=== PATIENT | female | born 1950 | race Caucasian/White ===

== ENCOUNTER 2017-04-02 14:31 | Outpatient (CLI) | payer MEDICARE, OTHER ==
[~2017-04-02] VITALS: Ht 177.8 cm; Wt 101.4 kg
[~2017-04-02 14:31] MED LIST: ALLO300T2 PO; ASPI81TA3 PO; DICL100G37 TOP; GEMF600T PO; HYDR-762 PO; MESA1.2T PO; METO50TA16 PO; ZOLP10TA PO
[2017-04-02 14:47] VITALS: Ht 177.8 cm; Wt 101.4 kg
[2017-04-02 14:48] VITALS: BP 133/63; PULSE 90; RESP 16
[2017-04-02] MEDS ORDERED: FEBU80TA PO (14:53)
--- NOTE | 2017-04-02 19:58 | CONS ---
Date/Time of Note Date/Time of Note DATE: 04/02/17 TIME: 19:54 Assessment/Plan Assessment/Plan Additional Assessment/Plan [facility] INITIAL OUTPATIENT CONSULTATION NOTE DATE OF CONSULTATION: 04/02/2017 PLACE OF SERVICE: [facility] ASSESSMENT AND PLAN: A very-pleasant 66-year-old gentleman well-known to me from operating on him in 2014 for abdominal pain which per the report resolved after his laparoscopic segment 5 cyst unroofing as well as cholecystectomy. His most recent bout of abdominal pain which was evaluated at [facility] appears to be likely related to a viral gastroenteritis issue and less likely due to his segment 5 cyst which has expectedly reformed, although smaller than last time. The mesentery right us that is apparent on the CT scan supports the viral enteritis diagnosis as is the presence of diarrhea. Patient currently does not demonstrate a need for acute surgical intervention and for this reason I recommended that the patient and family wait and see if the patient's symptoms would resolve on its own without intervention. If the patient's continue, then it would be appropriate to resume workup with likely percutaneous drainage of the cyst again to see if there is relief of symptoms prior to further surgical intervention. I explained this in detail with the patient and his daughter and answered all their questions to the best of my ability. The patient and family appeared to understand and agree with the plans. With above assessment, I've recommended the followin. Symptomatic follow-up 2. If pain symptoms have not resolved in the next 2-3 weeks, to consider percutaneous drainage of the segment 5 cyst as a diagnostic measure 3. Follow-up with us after above Thank you very much for having me involved in the care of this very pleasant patient and wonderful family. If you have any questions, please feel free to contact me at [phone]. Nature of presenting problem: Moderate severity Please note that, given the multiple number of diagnoses or management options, the moderate amount and/or complexity of data needed to be reviewed, and moderate risk of complications and/or morbidity or mortality, this qualifies as moderate complexity type of decision-making. Disclaimer: Inadvertent spelling and grammatical errors are likely due to EHR/ dictation software use and do not reflect on the quality of delivered patient care. Also, please note that the electronic time recorded on this node does not necessarily reflect the actual time of the visit. Updated clinical summary: A very-pleasant 66-year-old gentleman well-known to me from operating on him in 2014 for abdominal pain which per the report resolved after his laparoscopic segment 5 cyst unroofing as well as cholecystectomy. Comorbidities: 1. Hypertension. 2. Gout. 3. Prior myocardial infarctions x2, one in 1999 and one in 2000 and on aspirin therapy. No stents or cardiac operations. 4. History of known hepatic cyst at least since 2010 with the above-mentioned pain complaints. 5. Possible gastroesophageal reflux disease. 6. History of ulcerative colitis. 7. Status post colonoscopy by Dr. Christianson 12/01/2013 where colitis in remission was found and an otherwise normal colonoscopy was described with biopsies that showed no evidence of acute colitis. 8. Status post percutaneous aspiration of the large segment 6 hepatic cyst with 1-year relief of abdominal pain. 9. Status post laparoscopic segment 5 cyst unroofing and cholecystectomy primarily for relief of his pain symptoms on 01/20/15 at [facility] 10. BMI 32.1 CONSULTATION REQUESTED BY: Marina Landry MD HISTORY OF PRESENT ILLNESS: The patient is a very pleasant 66-year-old gentleman well-known to me from operating on him in 2014 for abdominal pain which per the report resolved after his laparoscopic segment 5 cyst unroofing as well as cholecystectomy. 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 There was also a fat- containing hernia in the right inguinal region and presence of a 5 cm cyst in segment 5 of the liver along with evidence of prior cholecystectomy. Patient also reported having on and off diarrhea without any blood in the stool. No shortness of breath or chest pain. Pain seems to have resolved but at its worst , was 10 out of 10 in intensity. There was no alleviation or exacerbating factors. No radiation. No other major complaints. ALLERGIES: NO KNOWN DRUG ALLERGIES MEDICATIONS Documented in the electronic records and reviewed by me. Please see the electronic records for details. 1. Toprol-XL 2. [place]. 3. Mesalamine. 4. Ambien. 5. Aspirin 6. Voltaren gel 7. Uloric 8. Gemfibrozil SOCIAL HISTORY: The patient is currently retired. He lives with his family and was accompanied by 1 of his daughters in the office. He does not report any active smoking, significant drinking, or any intravenous drug use. FAMILY HISTORY: There is no significant history of major medical issues or malignant problems as noted by the patient, his daughter, or in the chart. REVIEW OF SYSTEMS: Other than the above-mentioned, there are no other pertinent positives or pertinent negatives in a complete 14-point review of systems. PHYSICAL EXAMINATION GENERAL: The patient appears to be a very pleasant gentleman of descent sitting in a chair, appearing stated age,] and otherwise in no acute distress. BMI: 32.1 VITAL SIGNS: AVSS (please also see auto important data if available as well as the electronic records) HEENT: Normocephalic and atraumatic. Extraocular muscles and hearing are grossly intact bilaterally and symmetrically. Sclerae are nonicteric. Oral cavity is clear; oral mucosa appear to be pink and moist. Dentition: fair. NECK: Supple. There is no lymphadenopathy or JVD. There is no submental, submandibular or supraclavicular lymphadenopathy. CHEST: Rises symmetrically with each breath; patient is breathing comfortably. There are no audible wheezes, rales or rhonchi on the gross exam. HEART: Pulse is regular and palpable on the right wrist. Capillary refill is normal. Carotid pulses are palpable bilaterally and symmetrically in the neck. EXTREMITIES: Lower extremities contain no pitting edema around the ankles bilaterally and symmetrically. ABDOMEN: Abdomen is soft, nontender and nondistended. No evidence of ascites, organomegaly, caput medusae, engorged subcutaneous veins, or other abnormalities. There are no peritoneal signs or guarding. SKIN: Appears to be pink and feels warm to touch. NEUROLOGIC: Awake, alert, and follows commands appropriately. LABORATORY DATA: Reviewed above IMAGING: See electronic chart and above. Please note that I've personally reviewed all pertinent available images and I agree in general with their overall reported findings. My history and physical exam findings from 2015: The patient is a very pleasant 64-year-old gentleman with past medical history significant for inflammatory bowel disease as well as gout, hypertension, and possible gastroesophageal reflux disease who has been dealing with hepatic cysts for at least the last 4-5 years. We have images going back to at least where CT scan of the abdomen and pelvis showed hepatic cysts. These have been followed in time with a number of different images, the latest of which was an MRI of the abdomen and pelvis done on 11/23/2014 that showed a large, predominantly exophytic, circumscribed lesion extending from the medial aspect of the hepatic segments 5-6 measuring 5.7 x 6.6 x 5.9 cm which demonstrate marked homogeneous T2 signal hyperintensity and low T1 signal intensity without internal septations or solid nodule components, most consistent with a simple hepatic cyst. There is a mild associated mass effect with focal intrahepatic biliary duct dilatation involving hepatic sector 6. There are also 4 additional smaller hepatic cysts present within the central right lobe of the liver measuring 1 x 1.4 cm within segment 5, one measuring 0.9 x 1.2 cm within segment 6, and one measuring 0.9 x 1.1 and another 1.0 x 1.5 cm in segment 6 as well. The gallbladder appeared to be unremarkable, and there was no extrahepatic biliary ductal dilatation. Note that I personally reviewed all these images and I agree in general with their overall reported findings. Another interesting history is the fact that the patient's abdominal pain which he describes as a crampy-type pain present mainly in the mornings when he wakes up and then going away without any pain medications went away for approximately a year after this was aspirated by Dr. Ritchie at [facility]. The patient doesn't describe any other significant issues with his liver. He has never had any problems with hepatitis. He is not a significant drinker of alcohol and has never had any issues with cirrhosis. He also does not report any changes in his hearing or vision, difficulty with breathing or swallowing, although he has had problems with prior heart attacks, one in 1999 and one in 2000. He has not had any procedures including no stenting of his heart and is essentially on aspirin. He is able to walk as long as he wants and typically he has not had any issues with physical activity from his heart standpoint, mainly limited by his gout. He does not report any blood in his stool or urine, difficulty with appetite, issues with weight loss, difficulties with skin rashes, joint pain, musculoskeletal disease, neurologic, psychiatric, or psychologic problems. Consultation Date/Type/Reason Admit Date/Time Exam/Review of Systems Vital Signs Vitals Vital Signs Date Time Temp Pulse Resp B/P Pulse Ox O2 Delivery O2 Flow Rate FiO2 04/02/17 14:48 98.0 90 16 133/63 92 Room Air RYANN PAK M.D. Apr 02, 2017 19:57
== END 2017-04-02 16:22 | disposition home or self-care (01) ==
LOC: HPC 14:31
PROVIDERS: ATTEND Transplant Surgery
DX: I10 Essential (primary) hypertension (principal); M10.9 Gout, unspecified; K76.89 Other specified diseases of liver
CPT/HCPCS: G0463